=== PATIENT | female | born 1995 | race Caucasian/White ===

== ENCOUNTER 2024-12-05 05:40 | Inpatient (IN) ==
--- NOTE | 2024-11-26 11:19 | Anesthesiology Consultation ---
Date of Service November 26, 2024 Assessment & Plan (1) Encounter for pre-operative examination: Chart Review Chart Review: Acceptable Risk for Surgery and Patient NOT seen in Pre Admission Testing Infectious Disease screening: Per PAT nursing assessment on 11/26/24, No known infectious disease contacts in past 10 days or current infectious disease symptoms. No recent travel outside the country. History Surgery Operation Date: 12/05/24 07:30 Proposed Procedures p Repeat Section, - Mauricio Malin MD s With Tubal Ligation - Mauricio Malin MD Height/Weight Height: 5 ft 4 in Weight: 108.862 kg Allergies Allergy/AdvReac Type Severity Reaction Status Date / Time No Known Allergies Allergy Verified 11/26/24 08:47 Medications Home Medications Medication Instructions Recorded Confirmed Last Taken acetaminophen 500 mg tablet 500 mg PO DAILY PRN Pain 11/26/24 11/26/24 Unknown (Tylenol Extra Strength) aspirin 81 mg capsule 81 mg PO HS preventative 11/26/24 11/26/24 Unknown cyanocobalamin (vitamin B-12) 500 500 mcg PO HS 11/26/24 11/26/24 Unknown mcg tablet (Vitamin B-12) ferrous sulfate 325 mg (65 mg 325 mg PO HS 11/26/24 11/26/24 Unknown iron) tablet magnesium oxide 500 mg PO HS 11/26/24 11/26/24 Unknown vits no.133-ferrous 1 tab PO HS 11/26/24 11/26/24 Unknown fumarate 28 mg-folic acid 800 mcg tablet () Past Medical History Medical History (Updated 11/26/24 @ 11:30 by Tia Reilly PA-C) Elevated blood pressure reading without diagnosis of hypertension History of lumbar puncture (2021) for w/u of ANDRE History of pre-eclampsia (2022) delivered baby via C/S [facility] 11/06/22 Obesity Pseudotumor cerebri (2021) previously following with [facility]; last seen 10/21/21; per note: 'papilledema: pseudotumor cerebri vs hormone induced'; improved on diamox; she was referred to Bariatrics and stopped following with Neuro; pt states 'no current issues' Past Family History Family History Mother Thyroid cancer Ovarian cyst Hypertension Father Unknown family medical history Other No family history of adverse response to anesthesia Past Surgical History Surgical History (Updated 11/26/24 @ 11:30 by Tia Reilly PA-C) H/O thumb surgery (2010) UCL H/O wisdom tooth extraction History of section (2022) x1 - [facility] (delivered at 34 weeks) 11/06/22: epidural placed during labor and used for C/S Social History Smoking Status: Former smoker Do You Dip or Chew Tobacco: No Hx Alcohol Use: No Hx Substance Use: No substance use type: does not use
[2024-12-05] MEDS ORDERED: SODIUM CHLORIDE 0.9% 100 ML IV PRN (05:44)
[2024-12-05] MEDS: LACTATED RINGER'S 1,000 ML IV SCH ×2 (05:55→11:09)
[2024-12-05 06:04] LABS: Hematocrit (blood only) 31.2 % (37.0-47.0); Hemoglobin 10.3 g/dl (12.0-16.0); Mean Corpuscular Hemoglobin 28.6 pg (25.0-34.0); Mean Corpuscular Volume 86.7 fL (80.0-100.0); Platelet Count 344 K/uL (130-400); RDW Standard Deviation 42.6 fL (36.4-46.3); Red Blood Count 3.60 M/uL (4.20-5.40); White Blood Count 11.17 K/ul (4.8-10.8)
[2024-12-05] MEDS: ACETAMINOPHEN 500 MG TAB PO SCH (06:17)
[2024-12-05] MEDS ORDERED: MoRPHine SULFATE PF 1 MG/ML 10 ML AMP/VIAL ONE (06:36)
[2024-12-05] MEDS ORDERED: OXYTOCIN 10 UNITS/ML VIAL ONE ×3 (06:36)
[2024-12-05] MEDS ORDERED: PHENYLEPHRINE HCL 10 MG/ML VIAL ONE (06:38)
[2024-12-05] MEDS: CITRIC ACID/SODIUM CITRATE 15 ML UDC PO SCH (07:23)
--- NOTE | 2024-12-05 07:44 | History & Physical Bridge Note ---
Date of Service December 05, 2024 History & Physical Bridge Note I have examined the patient, reviewed the History & Physical and in the interval since the performance of the History & Physical I have noted the following changes of clinical significance: no changes noted
[2024-12-05] MEDS ORDERED: HYDROmorphone INJ 0.5 MG/0.5 ML SYR IV PRN (08:56)
[2024-12-05] MEDS ORDERED: NALOXONE HCL 0.4 MG/1 ML VIAL/CARP IV PRN (08:56)
[2024-12-05] MEDS ORDERED: LACTATED RINGER'S 500 ML IV PRN (08:56)
[2024-12-05] MEDS ORDERED: NALBUPHINE HCL INJ 10 MG/ML AMP IV PRN (08:56)
[2024-12-05] MEDS ORDERED: NALOXONE HCL 1 MG in SODIUM CHLORIDE 0.9% 1,000 ML IV PRN (08:56)
[2024-12-05] MEDS ORDERED: NALOXONE HCL 0.08 MG in SYRINGE 1.8 ML IV PRN (08:56)
[2024-12-05] MEDS ORDERED: DC INTRASPINAL MORPHINE SCH (09:00)
[2024-12-05] MEDS ORDERED: NO NARCOTICS OR SEDATIVES SCH (09:00)
[2024-12-05] MEDS ORDERED: ONDANSETRON INJ 2 MG/ML 2 ML VIAL ONE (09:16)
[2024-12-05] MEDS ORDERED: BENZOCAINE 20% SPRY 85 APPLN/85 GM CAN EXT PRN (09:31)
[2024-12-05] MEDS ORDERED: SENNA 8.6 MG TAB PO PRN (09:31)
[2024-12-05] MEDS ORDERED: MAGNESIUM HYDROXIDE SUSP 30 ML UDC PO PRN (09:31)
[2024-12-05] MEDS ORDERED: CALCIUM CARBONATE 500 MG CHEWABLE TAB PO PRN (09:31)
[2024-12-05] MEDS ORDERED: HYDROCORTISONE ACETATE 25 MG SUPP PR PRN (09:31)
[2024-12-05] MEDS ORDERED: LACTATED RINGER'S 1,000 ML IV SCH (09:45)
--- NOTE | 2024-12-05 10:00 | Post Operative Brief Note ---
Immediate Post Op Note Date of Surgery December 05, 2024 Pre & Post Diagnosis Operation Date: 12/05/24 07:30 <No data on this case meets the specified criteria> I identified the patient and participated in the time-out.: Yes Procedure Operation Date: 12/05/24 07:30 <No data on this case meets the specified criteria> Surgeon Mauricio Malin MD Signal Integrity Engineer CARLO Rubin Estimated Blood Loss 850 (QBL) Findings Consistent with Post-Op Diagnosis live male Apgars 8/9 weight 7-12 body cord x1 Fluids LR 850 ml. Specimens placenta bilateral tubes Drains Shaw Catheter Anesthesia Type Spinal Complications none Disposition Accompanied Patient To Recovery: Yes Overlapping Procedure I was present for: the critical portions of procedure. I was immediately available: during the entire case. Back up surgeon: was not required during procedure.
[2024-12-05] MEDS: KETOROLAC 30 MG/ML VIAL IV SCH (10:30)
[2024-12-05] MEDS: MoRPHine SULFATE PF 1 MG/ML 10 ML AMP/VIAL INT SPINAL ONE (11:09)
[2024-12-05] MEDS: DIPHTHER/TETAN/PERTUS Vaccine (Tdap, Adol/Adult) 0.5mL IM ONE (11:09)
[2024-12-05] MEDS: SODIUM CHLORIDE 0.9% 1,000 ML IV SCH (11:09)
[2024-12-05] MEDS: OXYTOCIN 20 UNITS/LR 1,002 ML IV SCH (11:55)
[2024-12-05] MEDS: ONDANSETRON INJ 2 MG/ML 2 ML VIAL IV PRN (12:50)
[2024-12-05] MEDS: diphenhydrAMINE 50 MG/ML VIAL IV PRN (13:47)
--- NOTE | 2024-12-05 14:52 | Operative Report ---
Post Operative Report Pre & Post Diagnosis Operation Date: 12/05/24 07:30 <No data on this case meets the specified criteria> I identified the patient and participated in the time-out.: Yes Procedure Operation Date: 12/05/24 07:30 <No data on this case meets the specified criteria> Surgeon Mauricio Malin MD Supervisor Spinning CARLO Rubin Quantitative Blood Loss (QBL) 850 mL Findings Consistent with Post-Op Diagnosis Live male Apgars 8 and 9 weight 7 pounds 12 ounces bloody cord x 1 Fluids 700 mL Specimens Placenta Bilateral tubes Drains None Anesthesia Type Spinal Complications None Disposition Accompanied Patient To Recovery: Yes Disposition: L&D Indications Repeat section on maternal request and desire for permanent sterilization procedure Description of Procedure Under satisfactory spinal anesthesia the patient was prepped draped usual steri le fashion. A timeout was called antibiotics were given preop the patient was identified prior to the start of the procedure. A low Pfannenstiel incision through her prior scar was then made entering into the abdominal cavity in successive layers without difficulty upon entering into the peritoneal cavity the bladder flap was sharply dissected down to the Metzenbaum scissors bladder flap was made and bladder blade was entered low segment transverse incision over the lower uterine segment was made incision was widened in the AP diameter of the amniotic sac was nicked to have clear fluid the was in the then delivered in the vertex presentation with the aid of fundal pressure there was a body cord x 1 that was reduced at time of delivery the cord was doubly clamped and cut cord delay was accomplished Apgars were 8 and 9 live male weight was 7 pounds 12 ounces. Cord blood was obtained placenta delivered spontaneously and intact the uterus was then exteriorized. Forceps were then placed on both angles and the inferior margin of the lap pad was then used to leave the uterus small clots and debris. Uterus was closed in single layer continuous interlocking fashion using 0 Vicryl suture. Next the patient desired permanent sterilization the tubes were then identified More clamps were then placed serially on each tube and then using the hand-held Liga-sure device the tubes were serially transected and they were submitted to pathology. The ovaries bilaterally were found to be within normal limits the uterus was then placed back into the normal anatomical position the fascia was then reapproximated from both ends using 0 Vicryl suture in a continuous fashion subcuticular space was closed with 3-0 plain suture and skin was then reapproximated with 4-0 Monocryl suture. Telfa ABD dressing and Steri-Strips were then applied the QBL was 850 mL the total fluids 700 mL the urine output was 50 mL clear. The final sponge needle and instrument count were correct the patient was then transferred to a stretcher and then brought to recovery room in stable condition I attest to the content of the Intraoperative Record and any orders documented therein. Any exceptions are noted below. Please note that CARLO Rubin was necessary to provide assistance delivery of the baby including fundal pressure closure of the uterus and closure of the abdomen
[2024-12-05] MEDS: ACETAMINOPHEN 325 MG TAB PO SCH (15:53)
[2024-12-05] MEDS: SIMETHICONE 80 MG CHEW PO SCH (15:54)
[2024-12-05] MEDS: DOCUSATE SODIUM 100 MG CAP PO SCH (21:42)
[2024-12-06] MEDS ORDERED: ONDANSETRON INJ 2 MG/ML 2 ML VIAL IV PRN (02:57)
[2024-12-06] MEDS ORDERED: HYDROmorphone INJ 0.5 MG/0.5 ML SYR IV PRN (02:57)
[2024-12-06] MEDS ORDERED: PROMETHAZINE 12.5 MG/50.5 ML BAG IV PRN (02:57)
[2024-12-06] MEDS ORDERED: diphenhydrAMINE 50 MG/ML VIAL IV PRN (02:57)
[2024-12-06 06:26] LABS: Hematocrit (blood only) 27.4 % (37.0-47.0); Hemoglobin 9.2 g/dl (12.0-16.0); Immature Granulocytes # (auto) 0.04 K/uL (0.01-0.20); Immature Granulocytes % (auto) 0.4 %; Mean Corpuscular Hemoglobin 29.8 pg (25.0-34.0); Mean Corpuscular Volume 88.7 fL (80.0-100.0); Platelet Count 296 K/uL (130-400); RDW Standard Deviation 43.9 fL (36.4-46.3); Red Blood Count 3.09 M/uL (4.20-5.40); White Blood Count 8.90 K/ul (4.8-10.8)
[2024-12-06] MEDS: FERROUS SULFATE 325 MG TAB PO SCH (08:26)
[2024-12-06] MEDS: PRENATAL VITAMIN 1 TAB PO SCH (08:26)
[2024-12-06] MEDS: diphenhydrAMINE Capsule 25 MG CAP PO PRN (08:50)
[2024-12-06 08:59] VITALS: RESP 18
[2024-12-06] MEDS ORDERED: KETOROLAC 30 MG/ML VIAL IV PRN (09:31)
--- NOTE | 2024-12-06 09:42 | Obstetrical Progress Note ---
Date of Service December 06, 2024 Subjective Ambulation: ambulating normally Voiding: no voiding problems Passing Gas:: Yes Diet Tolerance:: regular diet Lochia:: Small Feeding Type:: breast feeding Current Pain Level(1-10): 0 (doing well) Physical Exam Constitutional WD/WN, vitals as above Gastrointestinal (Abdomen) Inspection/Auscultation: abdomen normal to inspection incision c/d/i Musculoskeletal Extremities: extremities normal to inspection Skin no rashes, warm and dry Neurologic patellar DTR's 2+ bilat, sensation intact Psychiatric A+Ox3, euthymic affect Results & Data Vital Signs (Past 12 Hours) Vital Signs Temp Pulse Resp BP Pulse Ox O2 Del Method 12/06/24 07:17 36.6 C 72 18 110/69 98 Room Air 12/06/24 04:00 36.5 C 68 16 120/73 98 Room Air 12/06/24 02:00 18 98 12/06/24 01:00 16 97 12/06/24 00:00 16 97 12/05/24 23:33 36.5 C 67 16 117/76 98 Room Air 12/05/24 23:10 16 98 Laboratory Results 12/05/24 12/06/24 05:51 06:02 WBC 11.17 H 8.90 RBC 3.60 L 3.09 L Hgb 10.3 L 9.2 L Hct 31.2 L 27.4 L MCV 86.7 88.7 MCH 28.6 29.8 MCHC 33.0 33.6 RDW Std Deviation 42.6 43.9 RDW Coeff of Donita 13.5 13.6 Plt Count 344 296 MPV 9.2 L 9.3 L Immature Gran % (Auto) 0.4 Neut % (Auto) 66.8 Lymph % (Auto) 23.6 [place] % (Auto) 7.3 Eos % (Auto) 1.7 Baso % (Auto) 0.2 Neut # (Auto) 5.94 Lymph # (Auto) 2.10 [place] # (Auto) 0.65 H Eos # (Auto) 0.15 Baso # (Auto) 0.02 Immature Gran # (Auto) 0.04 Treponema pallidum Ab Negative Blood Type A Positive Antibody Screen NEGATIVE Crossmatch See Detail
[2024-12-06] MEDS: IBUPROFEN 600 MG TAB PO SCH (09:56)
[2024-12-07 07:34] LABS: Hematocrit (blood only) 26.3 % (37.0-47.0); Hemoglobin 8.6 g/dl (12.0-16.0)
[2024-12-07] MEDS ORDERED: IRON SUCROSE 200 MG in SODIUM CHLORIDE 0.9% 100 ML IV ONE (09:00)
[2024-12-07 09:03] VITALS: BP 135/87; PULSE 68; TEMP 98.2; O2SAT 100
--- NOTE | 2024-12-07 09:10 | Obstetrical Progress Note ---
Date of Service December 07, 2024 Assessment & Plan Admission and Anticipated Discharge Date Admission Date: December 05, 2024 Subjective Patient is seen and examined. She feels well, no complaints. Pain is under control with oral meds. Ambulating without dizziness Voiding without difficulty Tolerating regular diet with out N&V Flatus + BM + Bleeding is minimal No fever/ chills/ CP/ SOB/ N&V/ Leg pain Breast feeding without problems Vital Signs Temp Pulse Resp BP Pulse Ox O2 Del Method 12/07/24 07:35 36.8 C 68 18 135/87 100 Room Air 12/07/24 03:58 36.5 C 75 18 144/89 H 99 Room Air Vital Signs Temp Pulse Resp BP Pulse Ox O2 Del Method 12/07/24 07:35 36.8 C 68 18 135/87 100 Room Air 12/07/24 03:58 36.5 C 75 18 144/89 H 99 Room Air 12/06/24 19:30 Room Air 12/06/24 19:30 Room Air 12/06/24 19:14 36.8 C 75 18 116/74 98 Room Air 12/06/24 15:30 36.6 C 77 18 122/78 98 Room Air Intake and Output 12/06/24 12/07/24 12/07/24 22:59 06:59 14:59 Other: # Unmeasured Voids 1 2 Lab Results 12/05/24 12/06/24 12/07/24 Range/Units 05:51 06:02 07:09 WBC 11.17 H 8.90 (4.8-10.8) K/ul RBC 3.60 L 3.09 L (4.20-5.40) M/uL Hgb 10.3 L 9.2 L 8.6 L (12.0-16.0) g/dl Hct 31.2 L 27.4 L 26.3 L (37.0-47.0) % MCV 86.7 88.7 (80.0-100.0) fL MCH 28.6 29.8 (25.0-34.0) pg MCHC 33.0 33.6 (32.0-36.0) g/dL RDW Std Deviation 42.6 43.9 (36.4-46.3) fL RDW Coeff of Donita 13.5 13.6 (11.5-14.5) % Plt Count 344 296 (130-400) K/uL MPV 9.2 L 9.3 L (9.4-12.4) fL Immature Gran % (Auto) 0.4 % Neut % (Auto) 66.8 % Lymph % (Auto) 23.6 % [place] % (Auto) 7.3 % Eos % (Auto) 1.7 % Baso % (Auto) 0.2 % Neut # (Auto) 5.94 (1.40-6.50) K/uL Lymph # (Auto) 2.10 (1.20-3.40) K/uL [place] # (Auto) 0.65 H (0.11-0.59) K/uL Eos # (Auto) 0.15 (0.00-0.50) K/uL Baso # (Auto) 0.02 (0.00-0.20) K/uL Immature Gran # (Auto) 0.04 (0.01-0.20) K/uL Treponema pallidum Ab Negative (Negative) Blood Type A Positive Antibody Screen NEGATIVE Crossmatch See Detail PE: General: Alert, orientedx3, NAD CVS: S1S2 RRR Lungs; CTAB Abd: soft, NT, ND, BS+, fundus firm, below Umbilicus Incision: Clean, dry, intact Perineum intact, Lochia rubra minimal Ext; NT, no edema AP: 29 yo s/p RC Section, pod# 2 VSS Afebrile doing well Continue routine postop care Anemic asymptomatic, recommended IV Iron therapy but prefers oral Discussed how to take Encourage ambulation, PO intake All questions were answered D/C home , f/u in office Declined Rx for Oxycodone Results & Data Vital Signs (Past 12 Hours) Vital Signs Temp Pulse Resp BP Pulse Ox O2 Del Method 12/07/24 07:35 36.8 C 68 18 135/87 100 Room Air 12/07/24 03:58 36.5 C 75 18 144/89 H 99 Room Air
[2024-12-07] MEDS: IBUPROFEN 600 MG TAB PO PRN (09:53)
[2024-12-07] MEDS ORDERED: ACETAMINOPHEN 325 MG TAB PO PRN (15:31)
--- NOTE | 2024-12-10 18:20 | Anesthesiology Progress Note ---
Date of Service December 05, 2024 Anesthesia Post Procedure Pain Intensity Abdomen: Pain Intensity: 4 Notes Mental Status: alert / awake / arousable Patient Amnestic to Procedure: Yes Nausea / Vomiting: adequately controlled Pain: adequately controlled Airway Patency, RR, SpO2: stable & adequate BP & HR: stable & adequate Hydration State: stable & adequate Neuraxial Anesthesia: was administered and sensory block is resolving Anesthetic Complications: no major complications apparent
--- NOTE | 2024-12-11 06:02 | Coding Query ---
CODING QUERY To promote full compliance with coding requirements relating to patient care, provider participation is requested in all cases of skein dyer uncertainty. Please assist us with the question(s) below: Coding Question(s): Please document Weeks of Gestation Physician's Response(s): Weeks of Gestation: 39.2 Thank you Ada Olegario Principal Diagnosis: "that condition established after study, to be chiefly responsible for occasioning the admission of the patient to the hospital for care." Co-Existing Principal Diagnosis: "when two or more diagnoses equally meet the criteria for principal diagnosis as determined by the circumstances of admission, diagnostic work up, and/or therapy provided, and the Alphabetic Index, Tabular List, or another coding guideline does not provide sequencing direction, any one of the diagnoses may be sequenced first." "When the physician has documented what appears to be a current diagnosis in the body of the record, but has not included the diagnosis in the final diagnostic statement, the physician should be asked whether the diagnosis should be added." (Source Coding [facility] 2 QTR90. p3-4) JUAN
== END 2024-12-07 11:30 | disposition home or self-care (01) | DRG 785 ==
LOC: 4S1 05:40 → EDSTATUS 07:30 → 4E2 12:32